=== PATIENT | male | born 1970 | race African-American/Black ===

== ENCOUNTER → 2017-01-24 | Outpatient (CLI) | payer OTHER ==
[~2017-01-24] MED LIST: BUDE150T OR; PAROXETINE PO; PERC7.5T8 OR; PERCOCET PO; [UNRECOGNIZED DRUG - OTHER] PO
--- NOTE | 2017-01-24 10:32 | REP ---
LEFT WRIST, FOUR VIEWS: HISTORY: Pain. There is no acute fracture or dislocation. The joint spaces are normal in appearance. IMPRESSION: There is no acute fracture or dislocation. Signed by Aric Saldivar MD 01/24/2017 10:38 A
== END ==
LOC: M WUC 10:05
PROVIDERS: ATTEND Physician Assistant
DX: M25.532 Pain in left wrist (principal)

== ENCOUNTER → 2017-09-20 | Outpatient (REF) | payer OTHER | LOC: M LAB REF 16:33 | PROVIDERS: ATTEND Physician Assistant | DX: J02.9 Acute pharyngitis, unspecified (principal) ==

== ENCOUNTER → 2017-09-24 | Outpatient (CLI) | payer OTHER ==
--- NOTE | 2017-09-25 01:00 | REP ---
Clinical: Acute cough and dyspnea . Comparison: 04/14/2016 . Technique: PA and lateral. Findings: The mediastinum and cardiac silhouette are normal. The lung warren are clear and without acute consolidation, effusion, or pneumothorax. The skeletal structures are intact and normal. Impression: 1. No acute cardiopulmonary process. Signed by Danny Alex MD 09/24/2017 09:52 P
== END ==
LOC: M WUC 09:17
PROVIDERS: ATTEND Physician Assistant
DX: R05 Cough (principal)

== ENCOUNTER 2018-10-06 07:15 | Emergency (ER) | payer OTHER ==
[~2018-10-06] VITALS: Ht 175.3 cm; Wt 100.0 kg
[2018-10-06] MEDS ORDERED: ATEN25TA PO (07:25)
[2018-10-06] MEDS ORDERED: CETI10TA PO (07:25)
[2018-10-06] MEDS ORDERED: ONDANSETRON 4 MG ORAL DISINTEGRATING TAB (Q0162 PER 1MG) PO ONE (08:00)
[2018-10-06] MEDS ORDERED: KETOROLAC TROMETHAMINE 10 MG TAB PO ONE (08:00)
[2018-10-06] MEDS ORDERED: diazePAM 5 MG TAB PO ONE (08:00)
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
[2018-10-06] MEDS ORDERED: KETO10TAB PO (09:07)
[2018-10-06] MEDS ORDERED: VALI5TAB PO (09:07)
[2018-10-06 09:14] VITALS: BP 139/89
== END 2018-10-06 09:15 | disposition home or self-care (01) ==
LOC: M ED 07:15
DX: S22.32XA Fracture of one rib, left side, initial encounter for closed fracture (principal); V43.52XA Car driver injured in collision with other type car in traffic accident, initial encounter; Y92.9 Unspecified place or not applicable; Y93.9 Activity, unspecified; Y99.9 Unspecified external cause status; M54.9 Dorsalgia, unspecified; F43.10 Post-traumatic stress disorder, unspecified; Z79.899 Other long term (current) drug therapy
CPT/HCPCS: 71101; 73000; 73030; 99283; Q0162

== ENCOUNTER → 2019-07-25 | Outpatient (CLI) | payer OTHER ==
[~2019-07-25] MED LIST changes: +ATEN25TA PO; +CETI10TA PO; +KETO10TAB PO; +VALI5TAB PO
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
== END ==
LOC: M RAD 16:02
DX: M25.511 Pain in right shoulder (principal)

== ENCOUNTER 2021-01-22 15:32 | Emergency (ER) | payer OTHER ==
[~2021-01-22] VITALS: Ht 172.7 cm; Wt 100.0 kg
[2021-01-22] MEDS ORDERED: OMEP-218 PO (15:49)
[2021-01-22] MEDS ORDERED: dexameTHASONE 20MG/5ML VIAL (J1100 PER 1MG) IV ONE (16:05)
[2021-01-22] MEDS: COMBIVENT RESPIMAT 100-20MCG INHALER 4GM INH SCH ×2 (16:12→16:19)
[2021-01-22 16:32] LABS: BASO % 0.5 % (0.0-1.0); EOS # 0.5 10^3/uL (0.0-0.5); EOS % 6.2 % (0.0-3.0); HEMATOCRIT 41.6 % (42.0-52.0); HEMOGLOBIN 14.1 g/dl (13.5-17.5); LYMPH # 1.5 10^3/uL (1.5-5.0); LYMPH % 20.7 % (24.0-44.0); MEAN CORPUSCULAR HEMOGLOBIN 29.3 pg (27.0-33.0); MEAN CORPUSCULAR HGB CONC 33.9 g/dl (32.0-36.5); MEAN CORPUSCULAR VOLUME 86.5 fl (80.0-96.0); MONO # 0.5 10^3/uL (0.0-0.8); MONO % 6.2 % (2.0-8.0); NEUTROPHILS # 4.8 10^3/uL (1.5-8.5); NEUTROPHILS % 66.1 % (36.0-66.0); PLATELET COUNT, AUTOMATED 234 10^3/uL (150-450); RED BLOOD COUNT 4.81 10^6/uL (4.30-6.10); WHITE BLOOD COUNT 7.3 10^3/uL (4.0-10.0)
[2021-01-22 16:42] LABS: INR 1.02; PROTHROMBIN TIME 13.6 SECONDS (12.5-14.3)
--- NOTE | 2021-01-22 16:51 | REP ---
INDICATION: CHEST PAIN. COMPARISON: Comparison chest x-ray October 06, 2018. TECHNIQUE: Portable upright AP chest radiograph. FINDINGS: The lungs are well inflated and free of infiltrate. Pleural angles are sharp. Heart size is normal. Pulmonary vasculature is not increased. EKG monitoring electrodes are seen. The patient is status post lower cervical spine discectomy and fusion plating. IMPRESSION: No active disease. <Electronically signed by Mike Sue > 01/22/21 [id number]
[2021-01-22 17:10] LABS: ALBUMIN 3.6 GM/DL (3.2-5.2); ALT/SGPT 35 U/L (12-78); BILIRUBIN,DIRECT < 0.1 MG/DL (0.0-0.2); BILIRUBIN,TOTAL 0.4 MG/DL (0.2-1.0); BLOOD UREA NITROGEN 15 MG/DL (7-18); C REACTIVE PROTEIN QUANTITATIV < 0.30 MG/DL (0.00-0.30); CALCIUM LEVEL 8.9 MG/DL (8.5-10.1); CARBON DIOXIDE LEVEL 23 MEQ/L (21-32); CHLORIDE LEVEL 111 MEQ/L (98-107); CK-MB VALUE MASS 1.5 NG/ML (<3.6); CPK CREATINE PHOSPHOKINASE 228 U/L (39-308); CREATININE FOR GFR 1.25 MG/DL (0.70-1.30); FERRITIN 231 NG/ML (26-388); GLOMERULAR FILTRATION RATE > 60.0 (>60); GLUCOSE, FASTING 127 MG/DL (70-100); LDH LACTATE DEHYDROGENASE 292 U/L (87-241); LIPASE 83 U/L (73-393); MB/CK RELATIVE INDEX 0.66 (< OR =4); NT-PRO BNP 26 PG/ML (<125); POTASSIUM SERUM 3.9 MEQ/L (3.5-5.1); SODIUM LEVEL 142 MEQ/L (136-145); THYROID STIMULATING HORMONE 0.915 uIU/ML (0.358-3.740); TOTAL PROTEIN 6.5 GM/DL (6.4-8.2); TROPONIN I < 0.02 NG/ML (< 0.10)
[2021-01-22] MEDS ORDERED: ISOVUE-370 76% 100ML VIAL As Ordered ONE (18:42)
[2021-01-22 18:45] VITALS: BP 136/86
--- NOTE | 2021-01-22 19:36 | REPVR ---
PROCEDURE INFORMATION: Exam: CTA Chest With Contrast Exam date and time: 01/22/2021 6:42 PM Age: 50 years old Clinical indication: Chest pain; Additional info: Sob/chest pain TECHNIQUE: Imaging protocol: Computed tomographic angiography of the chest with contrast. 3D rendering (Not supervised by radiologist): MIP and/or 3D reconstructed images were created by the technologist. Radiation optimization: All CT scans at this facility use at least one of these dose optimization techniques: automated exposure control; mA and/or kV adjustment per patient size (includes targeted exams where dose is matched to clinical indication); or iterative reconstruction. Contrast material: ISOVUE 370; Contrast volume: 75 ml; Contrast route: INTRAVENOUS (IV); COMPARISON: CT ANGIO CHEST 06/12/2015 9:37 PM FINDINGS: Pulmonary arteries: There is opacification of the pulmonary arteries with no evidence of pulmonary embolus. Aorta: There is opacification of the aorta which appears intact. Lungs: There is some stranding density right lung base which may be mild right basilar atelectasis. Pleural spaces: There is no evidence of pneumothorax or pleural effusion. Heart: The heart is normal in size and there is no pericardial effusion. Lymph nodes: Unremarkable. No enlarged lymph nodes. Bones/joints: There is mild scoliosis. Soft tissues: Unremarkable. IMPRESSION: 1. Mild right basilar atelectasis. 2. No evidence of pulmonary embolus. Electronically signed by: Brian Torrez On 01/22/2021 19:37:23 PM
--- NOTE | 2021-01-22 20:34 | ECGEPIP ---
[facility] - ED Test Date: 2021-01-22 Pat Name: LONNIE CHAPPELL Department: Room: - Gender: Male Planning Assistant: Sheeba DE SANTIAGO : 1970 Requested By: CARRILLO Leroy Order Number: [id number] Reading MD: Patrick Stewart Measurements Intervals [place] Rate: 80 P: 31 [place]: 154 QRS: -3 QRSD: 78 T: 11 QT: 384 QTc: 442 Interpretive Statements Normal sinus rhythm NONSPECIFIC T WAVE ABNORMALITY(S) SIMILAR TO 04/24/16 Electronically Signed on 01-22-2021 20:34:16 EDT by Patrick Stewart
[2021-01-22 20:57] LABS: CK-MB VALUE MASS 1.4 NG/ML (<3.6); CPK CREATINE PHOSPHOKINASE 201 U/L (39-308); TROPONIN I < 0.02 NG/ML (< 0.10)
[2021-01-22] MEDS ORDERED: ALBUTEROL 90 MCG/ACT 8GM HFA INHALER INH ONE (21:20)
[2021-01-22] MEDS ORDERED: PRED20TA PO (21:20)
--- NOTE | 2021-01-24 05:35 | ECGEPIP ---
[facility] - ED Test Date: 2021-01-22 Pat Name: LONNIE CHAPPELL Department: Room: - Gender: Male Hotel Manager: ED : 1970 Requested By: CARRILLO Leroy Order Number: [id number] Reading MD: Patrick Stewart Measurements Intervals [place] Rate: 78 P: 39 MD: 168 QRS: -5 QRSD: 80 T: 35 QT: 382 QTc: 435 Interpretive Statements Normal sinus rhythm Nonspecific T wave abnormality SIMILAR TO 04/14/16 Electronically Signed on 01-24-2021 5:34:45 EDT by Patrick Stewart
== END 2021-01-22 21:38 | disposition home or self-care (01) ==
LOC: M ED 15:32
DX: J20.9 Acute bronchitis, unspecified (principal); J98.11 Atelectasis; I10 Essential (primary) hypertension; M54.9 Dorsalgia, unspecified; F43.10 Post-traumatic stress disorder, unspecified; Z79.899 Other long term (current) drug therapy
CPT/HCPCS: 71045; 71275; 80048; 80076; 82550; 82553; 82728; 83605; 83615; 83690; 83880; 84443; 84484; 85025; 85610; 85730; 86140; 87040; 87798; 93005; 93041; 94640; 94760; 96374; 99285; J1100; Q9967

== ENCOUNTER → 2021-11-14 | Outpatient (CLI) | payer OTHER ==
[~2021-11-14] MED LIST changes: +BUPR-364 PO; +D-101000 PO; +FLON1SPR; +MAGN400T2 PO; +OMEP-173 PO; +PRED20TA PO
== END ==
LOC: M LABSMTC 10:27
PROVIDERS: ATTEND Anesthesiology
DX: Z01.818 Encounter for other preprocedural examination (principal); Z11.52 Encounter for screening for COVID-19

== ENCOUNTER → 2022-02-17 | Outpatient (CLI) | payer OTHER | LOC: M LABSMTC 11:01 | PROVIDERS: ATTEND Anesthesiology | DX: Z01.812 Encounter for preprocedural laboratory examination (principal); Z20.822 Contact with and (suspected) exposure to COVID-19 ==

== ENCOUNTER 2022-02-22 06:39 | Day surgery (SDC) | payer OTHER ==
[~2022-02-22] VITALS: Ht 172.7 cm; Wt 103.9 kg
[~2022-02-22 06:39] MED LIST changes: +NS 1,000 ML IV ONE
[2022-02-22] MEDS ORDERED: propofoL 500 MG/50 ML VIAL As Ordered ONE (07:13)
[2022-02-22] MEDS ORDERED: LIDOCAINE 2% 100MG/5ML SDV (FOR ANES.) As Ordered ONE (07:13)
[2022-02-22] MEDS ORDERED: fentaNYL 100 MCG/2 ML INJECTION As Ordered ONE (07:14)
[2022-02-22 08:25] VITALS: BP 126/86
== END 2022-02-22 08:32 | disposition home or self-care (01) ==
LOC: M OPP 06:39
PROVIDERS: ATTEND Internal Medicine Gastroenterology
DX: Z12.11 Encounter for screening for malignant neoplasm of colon (principal); K64.0 First degree hemorrhoids; K44.9 Diaphragmatic hernia without obstruction or gangrene; K29.70 Gastritis, unspecified, without bleeding; K21.00 Gastro-esophageal reflux disease with esophagitis, without bleeding; Z90.49 Acquired absence of other specified parts of digestive tract; Z79.899 Other long term (current) drug therapy
CPT/HCPCS: 43239; 45378; 88305; J3010

== ENCOUNTER → 2024-02-14 | Outpatient (CLI) | payer OTHER ==
[~2024-02-14] MED LIST changes: -NS 1,000 ML IV ONE
== END ==
LOC: M WUC 08:40
PROVIDERS: ATTEND Nurse Practitioner Family
DX: R06.02 Shortness of breath (principal)